=== PATIENT | male | born 1955 | race Hispanic/Latino ===

== ENCOUNTER 2021-05-10 15:20 | Emergency (ER) | payer SELFPAY ==
--- NOTE | ~2021-05-10 | CT_ITS ---
EXAMINATION: CT brain wo con DATE: 05/10/2021 19:41 INDICATION: Syncope. TECHNIQUE: Computed tomography (CT) of the head was performed without intravenous contrast. The mA wa s adjusted according to patient size. Iterative reconstruction technique was employed. The dose-lengt h product was 605.33 mGy-cm. COMPARISON: None FINDINGS: There is no intracranial hemorrhage, acute infarction, or abnormal intracranial mass lesion . The ventricles are normal in size. There is mild mucosal thickening in the paranasal sinuses. The o rbits are normal. The mastoid air cells are normal. IMPRESSION: 1. Normal brain. Reviewed, dictated and finalized at location A. IMPRESSION: 1. Normal brain.
--- NOTE | ~2021-05-10 | XR_ITS ---
EXAMINATION: XR lumbar spine 2-3V DATE: 05/10/2021 15:55 INDICATION: Low back pain after fall TECHNIQUE: Anteroposterior and lateral views of the lumbar spine, and cone-down lateral view of the l umbosacral junction were obtained. COMPARISON: None. FINDINGS: There are 3 mm of retrolisthesis of L2 on L3 and 3 mm of anterolisthesis of L5 on S1. The v ertebral body heights are normal. There is severe loss of intervertebral disc space height from L2-3 through L5-S1. There is no fracture. Small degenerative osteophytes project from the anterior endplat es of multiple vertebral bodies. There is advanced facet osteoarthritis of the mid and lower lumbar s pine. The bowel gas pattern is normal. IMPRESSION: 1. Severe lumbar spondylosis without acute findings. Reviewed, dictated and finalized at location A.
[2021-05-10 15:34] VITALS: BP 165/66; PULSE 62; RESP 14; TEMP 36.9; O2SAT 96
--- NOTE | 2021-05-10 15:38 | ECG_ITS ---
Measurements Intervals [place] Rate: 60 P: 28 IL: 143 QRS: 45 QRSD: 96 T: 6 QT: 387 QTc: 388 Interpretive Statements SINUS RHYTHM BORDERLINE T WAVE ABNORMALITY- INFERIOR LEADS BORDERLINE ECG Electronically Signed On 05-11-2021 9:00:32 CDT by Clinton Vasquez D.O.
[2021-05-10 16:13] LABS: Basophils Percent Auto 0.4 % (0.2-1.2); Eosinophils Absolute Auto 0.2 K/mm3 (0-0.3); Eosinophils Percent Auto 2.1 % (0-4.4); Hematocrit 45.2 % (42.0-52.0); Hemoglobin 14.9 g/dL (14.0-18.0); Immature Granulocyte Absolute 0.03 K/mm3 (0.00-0.031); Immature Granulocyte Percent A 0.3 % (0-0.5); Lymphocytes Absolute Auto 3.08 K/mm3 (0.9-3.2); Lymphocytes Percent Auto 32.4 % (18.3-44.2); Mean Corpuscular Hemoglobin 29.8 pg (26-34); Mean Corpuscular Volume 90.4 fl (80-100); Mean Platelet Volume 9.8 fl (7.4-10.4); Monocytes Absolute Auto 0.7 K/mm3 (0.1-0.6); Monocytes Percent Auto 7.4 % (2.6-8.5); Neutrophils Absolute Auto 5.5 K/mm3 (1.3-6.7); Neutrophils Percent Auto 57.4 % (45.5-73.1); Platelet Count Result 282 k/mm3 (150-375); Red Cell Distribution Width 13.5 % (11.5-14.5); White Blood Count 9.5 K/mm3 (4.5-10.0)
[2021-05-10 16:31] LABS: Anion Gap 9 mmol/L (8-16); Blood Urea Nitrogen 13 mg/dL (9-20); Calcium 8.6 mg/dL (8.4-10.2); Carbon Dioxide 25 mmol/L (22-30); Chloride 106 mmol/L (98-107); Estimated CRCL calculation 81 ml/min; Estimated Glomerular Filt Rate > 60; Glucose 104 mg/dL (65-110); Potassium 4.1 mmol/L (3.4-5.0); Sodium 140 mmol/L (137-145)
[2021-05-10 18:24] VITALS: BP 166/66; PULSE 59; RESP 16; O2SAT 97
[2021-05-10 19:24] VITALS: BP 165/77; PULSE 59; RESP 16; O2SAT 99
--- NOTE | 2021-05-10 19:24 | PC.NURSE ---
Assumed care of pt at this time. Pt alert and upright on stretcher, EDP at bedside with negative turner.
[2021-05-10] MEDS: ACETAMINOPHEN 325 MG TABLET 650 MG PO (20:07)
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
== END 2021-05-10 20:59 | disposition home or self-care (01) ==
PROVIDERS: Emergency Provider Emergency Medicine
DX: S06.0X9A Concussion with loss of consciousness of unspecified duration, initial encounter (principal); M47.816 Spondylosis without myelopathy or radiculopathy, lumbar region; W28.XXXA Contact with powered lawn mower, initial encounter
CPT/HCPCS: 36415; 70450; 72100; 80048; 85025; 93005; 99284; A9270